=== PATIENT | male | born 1960 | race Caucasian/White ===

== ENCOUNTER → 2021-12-13 | Outpatient (CLI) | payer BC ==
[~2021-12-13] MED LIST: CATHETER FLUSH 10 ML SYR IV PRN; HOLD METFORMIN - RECEIVED CONTRAST 20 ML VIAL IV SCH; IOHEXOL 350 MG/ML 100 ML (OMNIPAQUE 350) VIAL IV ONE; NS 100 ML (IVPB) BAG IV ONE
--- NOTE | 2021-12-13 16:11 | Diagnostic Imaging Report ---
PROCEDURE: CT abdomen and pelvis with contrast. TECHNIQUE: Multiple contiguous axial images were obtained through the abdomen and pelvis after administration of intravenous contrast. Auto Exposure Controls were utilized during the CT exam to meet ALARA standards for radiation dose reduction. All CT scans use one or more of the following dose optimizing techniques: automated exposure control, MA and/or KvP adjustment based on patient size and exam type or iterative reconstruction. INDICATION: Abdominal pain. No prior studies are available for comparison. The lung bases are clear. No focal liver mass is detected. Gallbladder is unremarkable. There is no biliary ductal dilatation. The pancreas and spleen are unremarkable. No adrenal mass is detected. There is a small low-attenuation lesion in the upper pole of the right kidney measuring 14 mm. May represent a small cyst. The left renal collecting system and left ureter are prominent but no obstructing lesion is seen. Right ureter is somewhat prominent but no obstructing lesion is identified. No calculi are detected. Aorta is nonaneurysmal. No central retroperitoneal or mesenteric lymphadenopathy is identified. Small large bowel loops are normal in caliber. There is diverticulosis of the descending and sigmoid colon but no evidence of acute diverticulitis. No free fluid or fluid collection seen. Bladder is unremarkable. Prostate is unremarkable. There is a fat-containing left inguinal hernia. IMPRESSION: 1. There is some prominence of both ureters as well as left renal collecting system, however, no obstructing lesion is identified. 2. Uncomplicated diverticulosis. 3. Fat-containing left inguinal hernia. Dictated by: Dictated on workstation # [id number]
== END ==
LOC: RAD FS 14:23
PROVIDERS: ATTEND Nurse Practitioner Family
DX: K40.90 Unilateral inguinal hernia, without obstruction or gangrene, not specified as recurrent (principal); K57.30 Diverticulosis of large intestine without perforation or abscess without bleeding
CPT/HCPCS: 74177; Q9967